=== PATIENT | male | born 1960 | race Caucasian/White ===

== ENCOUNTER 2021-12-15 13:34 | Outpatient (REF) | payer MEDICARE, MEDICAID, SELFPAY ==
--- NOTE | 2021-12-15 12:00 | TONG_PTH ---
PATIENT: Reynaldo Elder LOC: [facility] U#:[id number] AGE/SX: 61/M ROOM: RE12/15/[address]: Ignacia Mason : 1960 BED: DIS: 12/15/2021 SPEC #: [id number] RECD: 12/15/21 17:40 STATUS: GEENA REMarcie #: [id number] TAYLOR: 12/15/21 12:[address]: Ignacia Mason DEPT: Surgical Specimen RECD BY: Natasha Gallagher ENTERED: 12/15/21 17:41 SP TYPE: MAC SORENSON DR: Clinton Carreon Tissues: 1 - TONGUE BIOPSY Procedures: GROSS AND MICRO LEVEL 4 Comments: [id number]
== END 2021-12-15 13:35 | disposition home or self-care (01) ==
LOC: LBN 13:34
PROVIDERS: PCP Nurse Practitioner; Visit Provider Registered Nurse Maternal Newborn
DX: C02.1 Malignant neoplasm of border of tongue (principal); Z72.0 Tobacco use
CPT/HCPCS: 88305

== ENCOUNTER 2024-12-11 10:40 | Inpatient (IN) | payer OTHER, SELFPAY ==
--- NOTE | 2024-12-11 15:58 | HPE_ITS ---
Date of service: 12/11/24 Time of Service: 15:58 Assessment and Plan Assessment and plan (1) Lung cancer: Status: Chronic Assessment and plan: Lung mass, suspected lung cancer, declined further work-up or treatment. With dyspnea, poorly controlled at home. Severe SOB noted on admission. Nebs, morphine, O2 ordered. (2) Squamous cell carcinoma of tongue: Status: Acute Assessment and plan: 2021, s/p surgical excision. (3) Weakness: Status: Acute (4) Falls: Status: Acute Assessment and plan: He had a fall at home this morning while attempting to transfer. Wound to LUE from fall. (5) End of life care: Status: Acute (6) Anxiety about dying: Status: Acute (7) Agitation: Status: Acute (8) Alcohol use disorder: Status: Acute Assessment and plan: He is down to 1-2 beers per day. He went without any ETOH a few days last week. He is unlikely to withdraw, no CIWA ordered at this time. (9) Hospice care patient: Status: Acute Assessment and plan: Reynaldo is a 64 year old man who is on hospice for suspected lung cancer with history of tongue cancer (2021), s/p partial glossectomy and left neck dissection. When the lung mass was discovered, he decided not to pursue treatment and was admitted to hospice in October 2024. His son, Christofer has been his caregiver at home. He has not been doing well at home despite maximal attempts to keep him comfortable in his home. He is on fentanyl patch 100 mcg/hr and has required 190 mg of morphine oral concentrate as well as haldol and lorazepam PRN. His son and hospice team has not been able to manage his symptoms of anxiety, dyspnea and pain at home. He has severe dyspnea with audible wheezing noted on admission. He is admitted to hospice symptom management for EOL care with IV drip and PRN IV medications. History of Present Illness Narrative: Reynaldo is a 64 year old man who is on hospice for suspected lung cancer with history of tongue cancer (2021), s/p partial glossectomy and left neck dissection. When the lung mass was discovered, he decided not to pursue treatment and was admitted to hospice in October 2024. His son, Christofer has been his caregiver at home. He has recently been declining more significantly. Christofer reports that he was not eating last week and he thought he was going to but then he seemed to be doing a little better. He reports that over the last few days, he has been eating and drinking very little, he has been eating approximately 1-2 crackers per day. His pain, dyspnea and anxiety [facility] the [facility] and for Christofer to call the doctor. He is on fentanyl patch 100 mcg/hr and has also required 190 mg of morphine oral concentrate for pain and dyspnea. He has also had lorazepam and haldol PRN. A 14 fr coude catheter was inserted on 12/04. He is very weak and had a fall this morning while attempting to transfer. He has been agitated and restless. He has a significant ETOH history but he is down to 1-2 beers per day. He had a few days last week where he did not drink any alcohol at all. He is not likely to have withdrawal symptoms at this point. Upon admission for hospice symptom management, he is noted to have severe dyspnea, unable to speak. He was given nebulizer treatment on the way to the hospital with ambulance crew. He was given another nebulizer upon arrival. Discussed plan to start IV/SC drip for symptom management and he agrees. He is admitted for hospice symptom management for anxiety, dyspnea and pain. His life expectancy is limited and he may on this admission. Review of Systems Narrative: Difficult to obtain due to severe SOB with difficulty talking. [facility] All Active Problems (Updated 12/11/24 @ 16:25 by Diana Diaz NP) Alcohol use disorder (Acute) Agitation (Acute) Anxiety about dying (Acute) End of life care (Acute) Hospice care patient (Acute) Falls (Acute) Weakness (Acute) Lung cancer (Chronic) Squamous cell carcinoma of tongue (Acute) Tongue lesion (Acute) Medical History Tongue cancer Ankle fracture Broken wrist Broken thumb Depression Broken leg Anxiety Surgical History History of hip surgery History of hernia surgery Family History Mother Stroke Father Myocardial infarction Stroke Sister Arthritis Grandfather Personal history of malignant neoplasm Grandmother No problems noted. Social History Smoking/Tobacco Use Status: Former Tobacco Use tobacco type: cigarettes Quit Date: 03/30/22 Smoking risk assessment performed?: Yes Alcohol Intake: current Alcohol Intake frequency: 0-2 drinks per day Alcohol type: beer Details: Patient drinks a 12 pack a day. Drug use: Daily Substance use type: marijuana and other Meds Allergies and Home Medications Allergies Allergy/AdvReac Type Severity Reaction Status Date / Time No Known Allergies Allergy Unverified 10/03/24 13:23 Home Medications ?Medication ?Instructions ?Recorded ?Confirmed ?Type budesonide 160 mcg-glycopyr 9 2 inh inhalation QAM AND QPM #10.7 10/18/24 Rx mcg-formot 4.8 mcg/actuation HFA grams inhaler (Breztri Aerosphere) folic acid 1 mg tablet 1 mg PO DAILY #90 tabs 10/18 Rx thiamine HCl (vitamin B1) 100 mg 100 mg PO DAILY #90 c aps 10/18/24 Rx capsule ibuprofen 200 mg tablet 600 mg (3 x 200 mg) PO DAILY PRN 11/01/24 Rx cancer related pain #60 tabs prednisone 10 mg tablet 10 mg PO DAILY #14 tabs 0502/28 Rx polyethylene glycol 3350 17 17 g PO BID PRN constipati on #238 11/15/24 Rx gram/dose oral powder (Miralax) grams ipratropium 0.5 mg-albuterol 3 mg 3 ml inhalation Q6H PRN wheezing 11/26/24 Rx (2.5 mg base)/3 mL nebulization #90 mL soln albuterol sulfate 90 mcg/actuation 2 puff inhalation D AILY PRN 11/27/24 Rx aerosol inhaler shortness of breath or wheez ing #8.5 grams cephalexin 500 mg capsule 500 mg PO Q8H #21 caps 11/27 Rx lorazepam 1 mg tablet 1 mg PO Q4H PRN anxiety, IZQUIERDO or 11/28/24 Rx nausea #42 tabs prochlorperazine maleate 10 mg 10 mg PO Q6H PRN nausea and 11/29/24 Rx tablet (Compazine) vomiting #30 tabs fentanyl 100 mcg/hr transdermal 1 patch transdermal Q7 2H pain #5 ea 12/06/24 Rx patch morphine concentrate 100 mg/5 mL 5 - 20 mg (0.25 - 1 m L) PO Q1-4H 12/06/24 Rx (20 mg/mL) oral solution PRN moderate to severe pain or shortness of breath #60 mL Exam Narrative Exam Narrative: General: pleasant, chronically ill appearing, middle-aged man sitting up in the hospital bed with severe SOB and audible wheezing. He cannot speak due to dyspnea. HEENT: atraumatic, EOMI, mm dry. neck: supple Cardiovascular: heart sounds tachycardic. Respiratory: as above, severely increased WOB, unable to speak, +audible wheezing. Lungs sound wheezy/rhonchorous throughout. Wearing O2 via nc. No coughing noted during visit. GI: +BS, abd soft/flat, nondistended, nontender on palpation. Ext: trace pitting edema to BLEs. Moves all 4 extremities freely. Dressings to LUE. Time Spent Time spent with Patient: 55-74 minutes Time was spent: preparing to see the patient(eg.review tests), obtaining and/or reviewing separately otained hiistory, ordering medications,tests, procedures, referring, communicating with other health neonatal intensive care nurse, counseling the patient and care coordination
[2024-12-11] MEDS: Albuterol/Ipratropium 3 ML UPD VIAL IH (16:39)
[2024-12-11] MEDS: Albuterol 2.5 MG/3 ML INH SOLN VIAL UPD (17:59)
[2024-12-11] MEDS: MORPHine Oral Solution 10 MG/5 ML CUP PO (18:18)
[2024-12-11] MEDS: Patch Removal 1 EACH TD (18:19)
--- NOTE | 2024-12-11 20:01 | W.PC.ACHO ---
Registration Status: ADM IN Primary Language: Preferred Language: Medical / Surgical History (Last Reviewed 12/11/24 @ 16:18 by Diana Diaz NP) Tongue cancer Ankle fracture Broken wrist Broken thumb Depression Broken leg Anxiety (Last Reviewed 12/11/24 @ 16:18 by Diana Diaz NP) History of hip surgery History of hernia surgery Most Recent Vital Signs Pulse Rhythm Regular 12/11/24 17:15 Respiratory Effort Labored, Accessory Muscle Use, Incrsd Work of Breathing 12/11/24 17:15 Respiratory Depth Shallow 12/11/24 17:15 Respiratory Pattern Apnea 12/11/24 17:15 Comment no VS per hospice provider. 12/11/24 17:15 Allergies No Known Allergies Allergy (Unverified 10/03/24 13:23) Active Medications Generic Name Dose Route Start Last Admin Trade Name Freq PRN Reason Stop Dose Admin Albuterol Sulfate 2.5 mg 12/11/24 16:46 12/11/24 17:59 Albuterol 2.5 Mg/3 Ml Inh Soln Vial UPD 2.5 mg Q1H PRN PRN Administration Hydromorphone HCl 500 mg/ 250 mls @ 1 mls/hr 12/11/24 16:00 12/11/24 18:57 Sodium Chloride IV_INF 2.5 mg/hr INFUSION KASHMIR 1.25 mls/hr Protocol Titration 2 MG/HR Morphine Sulfate 0 mg 12/11/24 10:51 12/11/24 18:18 Morphine Oral Solution 10 Mg/5 Ml Cup PO 10 mg Q4H PRN Administration dyspnea Scopolamine HBr 1 mg 12/11/24 12:00 12/11/24 18:30 Scopolamine 1 Mg/3 Days Patch TD Not Given Q72H KASHMIR IV IV Catheter Type [Right Wrist] Peripheral IV IV Catheter Gauge [Right Wrist 20 ] Diet Orders Category Date Time Status Regular/Normal [DIET] Nutrition 12/11/24 Dinner Active Intake and Output - 24 Hour Total 12/11/24 thru 12/11/24 18:57 Intake Total 552.433 Balance 552.433 Weight 66.814 kg Intake: IV 2.433 Oral 550 Other: Urine Color Yellow Urine Appearance Clear Problems (Last Reviewed 12/11/24 @ 16:18 by Diana Diaz NP) Alcohol use disorder (Acute) Agitation (Acute) Anxiety about dying (Acute) End of life care (Acute) Hospice care patient (Acute) Falls (Acute) Weakness (Acute) Lung cancer (Chronic) Squamous cell carcinoma of tongue (Acute) v v v v v v v v v Sending and/or Receiving Nurses: Please use comment section below to note any information pertinent to the patient hand-off not included above. Information / Comments: Pt arrived to unit in a lot of discomfort and air hunger noted, RT notified. Report received from: Diana Ricks Hospice provider, EMS personal.
[2024-12-11] MEDS: LORazepam 20 MG/10 ML VIAL IV/SC (23:21)
[2024-12-11] MEDS: MORPHine 4 MG/ML SYR IV/SC (23:23)
[2024-12-12] MEDS: MORPHine 4 MG/ML SYR IV/SC ×2 (10:11→22:10)
[2024-12-12 11:20] VITALS: O2SAT 91
[2024-12-12 11:24] VITALS: PULSE 51; RESP 24; O2SAT 91
[2024-12-12] MEDS: Albuterol 2.5 MG/3 ML INH SOLN VIAL UPD (11:24)
--- NOTE | 2024-12-12 11:40 | PDOC.CMPRO ---
Date of service: 12/12/24 Time of Service: 11:40 Care Management Progress Note Progress Note Text Progress Note Text: Reynaldo was admitted yesterday for hospice symptom management. Reynaldo has lung cancer as well as a squamous cell carcinoma of the tongue. He has declined further treatment. He was admitted due to severe shortness of breath at home, along with anxiety. Reynaldo is cared for by his son, Christofer. Reynaldo was lying in bed when CM met with him today. He did not respond to CM. Christofer was present. He was very pleasant. He stated that he seemed to have everything that he needs. He feels that his dad is being well taken care of, and the staff is treating him nicely as well. Discharge Potential Discharge Needs: Other (hospice follow up) Anticipated Barriers to Discharge: None Identified Patient/Family Education Needs: Review discharge instructions, discuss Ask Me Three Transportation: EMS Plan: Reynaldo is on comfort measures. It appears that he will remain at [facility] through the end of his life. CM will continue to follow and offer comfort to the family. Social Determinants of Health Screening Will the Patient Participate in the Screening?: Unable to obtain
[2024-12-12] MEDS: Scopolamine 1 MG/3 DAYS PATCH TD (11:46)
[2024-12-12] MEDS: LORazepam 1 MG TAB PO (12:56)
[2024-12-12] MEDS: MORPHine Oral Solution 10 MG/5 ML CUP PO ×2 (14:40→23:55)
--- NOTE | 2024-12-12 14:42 | W.PM.PROGNOT ---
Date of Service Date of service: 12/12/24 Time of Service: 14:00 Assessment and Plan Assessment and plan (1) Lung cancer: Status: Chronic Assessment and plan: Lung mass, suspected lung cancer, declined further work-up or treatment. With dyspnea, poorly controlled at home. Severe SOB noted on admission with some improvement noted today, however, he does not appear comfortable yet. He remains restless, he does not appear to be resting comfortably yet. Nebs, morphine, O2 ordered. Morphine order changed to q1h PRN for dyspnea. (2) Squamous cell carcinoma of tongue: Status: Acute Assessment and plan: 2021, s/p surgical excision. (3) Weakness: Status: Acute Assessment and plan: Requires 2 assist chair to bed. (4) Falls: Status: Acute Assessment and plan: He had a fall at home yesterday morning while attempting to transfer. Wound to LUE from fall. (5) End of life care: Status: Acute (6) Anxiety about dying: Status: Acute Assessment and plan: He appears restless, his son feels he is anxious. He has PRN IV lorazepam ordered. Scheduled lorazepam 1 mg q4h added today. (7) Agitation: Status: Acute (8) Alcohol use disorder: Status: Acute Assessment and plan: He is down to 1-2 beers per day. He went without any ETOH a few days last week. He is unlikely to withdraw, no CIWA ordered at this time. Lorazepam ordered for PRN in addition to scheduled doses. (9) Cancer-related pain: Status: Acute Assessment and plan: His pain is under better control with the hydromorphone pump, currently at 4 mg/hr with bolus of 2 mg q15 min PRN. Titrate as needed. (10) Hospice care patient: Status: Acute Assessment and plan: Reynaldo is a 64 year old man who is on hospice for suspected lung cancer with history of tongue cancer (2021), s/p partial glossectomy and left neck dissection. When the lung mass was discovered, he decided not to pursue treatment and was admitted to hospice in October 2024. His son, Christofer has been his caregiver at home. He was not doing well at home despite maximal attempts to keep him comfortable in his home. His son and hospice team were unable to manage his symptoms of anxiety, dyspnea and pain at home. He had severe dyspnea with audible wheezing noted on admission. There is some improvement with breathing, anxiety and pain but he does not appear comfortable yet. Orders adjusted as above. He is taking in very little. He is only taking sips of water and a milkshake. He was only taking bites at home for at least a week prior to coming into the hospital. He is admitted to hospice symptom management for EOL care with IV drip and PRN IV medications. He remains on hospice symptom management. Subjective Subjective Interval history since last seen: Reynaldo was seen in his hospital room with his son, Christofer present. Reynaldo was sitting up in the chair with his legs dependent. He had his eyes closed but he did not appear comfortable or relaxed. His breathing does not appear as labored as yesterday but he still has increased WOB. Nursing is giving him liquid morphine PRN with relief, nursing is requesting more frequent dosing for the morphine as it appears to be helping his dyspnea. He is wearing O2 via nc at 3 lpm. He is also getting PRN nebs. He is taking occasional sips of water and a shake. He has only taken bites for about a week prior to coming into the hospital. He has a hydromorphone drip running at 4 mg/hr with 2 mg q15 minute PRN bolus. His pain appears overall under control but he occasionally reports discomfort to his son. He does not have lower extremity edema but he has purple discoloration to BLEs while sitting up in the chair. His lower extremities are cool to touch. He is leaning forward frequently. He opened his eyes briefly during the visit but he did not wake up enough to engage in the visit. Exam Narrative Exam Narrative: General: pleasant, chronically ill appearing, middle-aged man sitting up in the chair with legs dependent. He kept his eyes closed for most of the visit but opened them briefly and made eye contact. HEENT: atraumatic, makes eye contact when he opens his eyes, mm slightly dry. neck: supple Cardiovascular: heart sounds regular. Respiratory: as above, he continues to have increased WOB, although some improvement noted as compared to yesterday. Lungs sound diminished throughout, wheezing improved from yesterday. Wearing O2 via nc. No coughing noted during visit. GI: +BS, abd soft/flat, nondistended, nontender on palpation. Ext: no edema to BLEs, skin wrinkled on legs. +Purple discoloration noted to BLEs, BLEs cool to touch. Moves all 4 extremities freely. Dressings to LUE and toe on R. Objective Last Vital Signs Pulse 51 L 12/12/24 11:24 Resp 24 12/12/24 11:24 Pulse Ox 91 L 12/12/24 11:24 PAWSS Have you Been Recently Intoxicated or Drunk Within the Last 30 days?: Unable to Obtain Have you Ever Experienced Previous Episodes of Alcohol Withdrawal?: Unable to Obtain Have you ever Experienced Withdrawal Seizures?: Unable to Obtain Have you ever Experienced Delirium Tremens(DT)s?: Unable to Obtain Have you ever undergone Alcohol Rehabilitation Treatment (i.e, inpt ot outpatient treatment programs)?: Unable to Obtain Have you ever Experienced Blackouts?: Unable to Obtain Have you ever Combined Alcohol with other Downers within the last 90 days?: Unable to Obtain Have you ever Combined Alcohol with any other Substance of Abuse during the last 90 days?: Unable to Obtain Positive Blood Alcohol level on Presentation? [PCS.BAL]: Unable to Obtain Evidence of Increased Autonomic Activity (i.e. HR>120, tremor, sweating, agitation, nausea)?: Unable to Obtain Time Spent with Patient Time Spent with Patient: >50 minutes Time was spent: preparing to see the patient(eg.review tests), ordering medications,tests, procedures, referring, communicating with other health hiv/aids care nurse, counseling the patient and care coordination
--- NOTE | 2024-12-12 14:49 | CHAPLAIN ---
I met Reynaldo last evening when he was first admitted. He was fidgety and restless until his nurse, LM Nicholas, was able to get his pain meds delivered by IV. He spoke a bit. It was difficult to understand what he was saying, except for one time when he said, I want to go home clearly. We suggested he plan to stay for the night. Reynaldo is a hospice patient from [place] who was a direct admit yesterday for symptom management. His son Christofer is with him to day. Christofer said Reynaldo has been restless for two weeks and it's been difficult to keep him in bed and comfortable. Christofer said he had hoped to keep Reynaldo at home but appreciates that he can visit him here and get rest at night. Christofer said Reynaldo's sister may be in to visit later today.
[2024-12-12] MEDS: LORazepam 20 MG/10 ML VIAL IVP ×3 (15:37→23:33)
[2024-12-13] MEDS: MORPHine 4 MG/ML SYR IV/SC ×4 (02:30→22:15)
[2024-12-13] MEDS: Glycopyrrolate 0.2 MG/1 ML VIAL IVP ×3 (03:17→13:39)
[2024-12-13] MEDS: LORazepam 20 MG/10 ML VIAL IVP ×3 (04:54→18:35)
[2024-12-13] MEDS: LORazepam 20 MG/10 ML VIAL IV/SC ×3 (06:06→22:15)
--- NOTE | 2024-12-13 14:31 | CHAPLAIN ---
I continue to check in on Reynaldo multiple times a day. Reynaldo's son Christofer and Reynaldo's sister are here today with him. They said that Reynaldo seems more calm today, less restless than yesterday. Reynaldo is here for hospice symptom management.
--- NOTE | 2024-12-13 14:41 | W.PM.PROGNOT ---
Date of Service Date of service: 12/13/24 Time of Service: 14:43 Assessment and Plan Assessment and plan (1) Cancer-related pain: Status: Acute Assessment and plan: is on hydromorphone drip at 6 mg/hr basal and 3 mg bolus, still uncomfortable will continue pain meds while on palliative sedation titrate up hydromorphone if needed (2) Agitation: Status: Acute Assessment and plan: severe, terminal has had haldol without much improvement combination of pain, dyspnea, anxiety, aspiration pneumonia, possible hepatic encephalopathy (3) Anxiety about dying: Status: Acute Assessment and plan: present when first admitted to hospice but has been improving over last few weeks family present loving and comforting (4) End of life care: Status: Acute Assessment and plan: hospital client partner present getting oral care regularly has cool cloths for forehead, feels very hot to touch added iv tylenol for comfort about to start palliative sedation with propofol (5) Hospice care patient: Status: Acute Assessment and plan: changing from respite to symptom managment status, given his current intense level of management (6) Weakness: Status: Acute Assessment and plan: bed bound (7) Lung cancer: Status: Chronic Assessment and plan: mass never biopsied, highly suspicious for lung cancer based on medical history and imaging (8) Squamous cell carcinoma of tongue: Status: Acute Assessment and plan: s/p glossectomy and chemo and radiation his experience treating this cancer made him reluctant to treat any other (9) Delirium: Status: Acute Assessment and plan: ternimal delirium reassured family that this is part of most people's dying process, but we need Reynaldo to be more comfortable than he is. (10) Fever: Status: Acute Assessment and plan: likely due to an aspiration pneumonia, his glossecomy makes it harder to swallow, high risk for asp pneumo Subjective Subjective Patient reports: still having pain, shortness of breath and fever; denies tolerating liquids well Interval history since last seen: Reynaldo is still suffering. His nurse has been appropriately increasing both his basal and bolus doses of hydromorphone. He is getting lorazepam hourly He is also getting liquid morphine for air hunger. He is febrile and restless. He is far from comfortable. Given this, we are changing him over to HOSPICE SYMPTOM MANAGeMENT. I spoke to Shannen Johnson, hospice nurse leader as well as Antonia Dominique MD, alternative hospice medical lab tech instructor, about starting palliative sedation for Reynaldo. We agreed that with his current symptoms , he qualfies. His son Christofer who is Reynaldo's DPOA and Reynaldo's sister Pauly were both present during the discussion. Christofer and I reviewed the palliative sedation permission form together and we both signed it. I reviewed the protocol with hospital pharmacist Chano and with Reynaldo's primary nurse Ava. Order was entered. Exam Narrative Exam Narrative: Sitting up in bed, eyes closed, restless, struggling to breathe, uncomfortable, grimacing on and off, anxious appearing Eyes anicteric, open them briefly Heent mm are dry but not parched, no oral lesions noted, is s/p glossectomy neck no lad or jvd lungs rhonchi throughout , tachypneic, using accessory muscles, crackles at bases, right > left abd soft NT, ND no masses noted gu has chavez in place, urine is memo and concentrated. ext + clubbing of all fingers, feet are cyanotic, but still warm given his terminal fever skin no caput's medusa, no spider hemangioma's despite many years of heavy etoh psych appears anxious, restless, not verbalizing, cannot tell if hallucinating cv tachycardic, irregular Objective Last Vital Signs Pulse 51 L 12/12/24 11:24 Resp 24 12/12/24 11:24 Pulse Ox 91 L 12/12/24 11:24 PAWSS Have you Been Recently Intoxicated or Drunk Within the Last 30 days?: Unable to Obtain Have you Ever Experienced Previous Episodes of Alcohol Withdrawal?: Unable to Obtain Have you ever Experienced Withdrawal Seizures?: Unable to Obtain Have you ever Experienced Delirium Tremens(DT)s?: Unable to Obtain Have you ever undergone Alcohol Rehabilitation Treatment (i.e, inpt ot outpatient treatment programs)?: Unable to Obtain Have you ever Experienced Blackouts?: Unable to Obtain Have you ever Combined Alcohol with other Downers within the last 90 days?: Unable to Obtain Have you ever Combined Alcohol with any other Substance of Abuse during the last 90 days?: Unable to Obtain Positive Blood Alcohol level on Presentation? [PCS.BAL]: Unable to Obtain Evidence of Increased Autonomic Activity (i.e. HR>120, tremor, sweating, agitation, nausea)?: Unable to Obtain Time Spent with Patient Time Spent with Patient: 35-49 minutes Time was spent: preparing to see the patient(eg.review tests), ordering medications,tests, procedures, referring, communicating with other health care management assistant, counseling the patient and care coordination
[2024-12-13] MEDS: ACETAMINOPHEN 1,000 MG/100 ML BAG 400 MG IVPB (14:46)
[2024-12-13] MEDS: PROPOFOL 1,000 MG/100 ML BTL 1 MG IV_INF (15:12)
--- NOTE | 2024-12-13 18:26 | PDOC.CMPRO ---
Date of service: 12/13/24 Time of Service: 18:26 Care Management Progress Note Progress Note Text Progress Note Text: Reynaldo was lying in bed, with the head of the bed elevated when CM met with him; he was not responsive, although he did not appear comfortable at that time. His sister and son were both visiting, listening to his favorite music and soothing him as needed. They stated that his RN was recently in and provided additional medication to help with his restlessness, and they are waiting for it to be more effective. They were pleasant and caring towards Reynaldo. CM provided support and empathy; CM will continue to check in with Reynaldo and his family, providing support during this difficult time. Discharge Plan: Reynaldo is at [facility] for hospice symptom management, and will remain here for end of life care. 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 CM will continue to follow and offer comfort to the family. Social Determinants of Health Screening Will the Patient Participate in the Screening?: Unable to obtain
[2024-12-14] MEDS: LORazepam 20 MG/10 ML VIAL IVP (00:13)
--- NOTE | 2024-12-14 10:42 | DSE_ITS ---
Date of service: 12/14/24 Time of Service: 01:57 DS: Diagnosis Discharge Diagnosis (1) Cancer-related pain: Status: Acute (2) Agitation: Status: Acute (3) Anxiety about dying: Status: Acute (4) End of life care: Status: Acute (5) Hospice care patient: Status: Acute (6) Weakness: Status: Acute (7) Lung cancer: Status: Chronic (8) Squamous cell carcinoma of tongue: Status: Acute (9) Delirium: Status: Acute (10) Fever: Status: Acute Discharge Plan Disposition Patient Disposition: Discharge Details Reason For Visit: Lung Mass, Hospice Symptom Management Admit Date/Time: 12/11/24 10:40 Admit Provider: Jacki Alvarado Attending Provider: Jacki Alvarado Primary Care Provider: Jose Martin Carreon Hospital Course Hospital Course: DATE OF ADMISSION: 12/11/2024 DATE OF : 12/14/2024 at 01:57 DISCHARGE DISPOSITION: DISCHARGE DIAGNOSES: * Suspected lung cancer ? status: chronic * Squamous cell carcinoma of the tongue, s/p partial glossectomy and left neck dissection (2021) ? status: history * Generalized weakness ? status: acute * Fall with left upper extremity injury ? status: acute * End-of-life care/hospice management ? status: acute * Anxiety related to dying ? status: acute * Agitation ? status: acute * Alcohol use disorder, not currently withdrawing ? status: chronic * Hospice care ? status: acute HOSPITAL COURSE: Mr. Reynaldo Elder, a 64-year-old male with a history of squamous cell carcinoma of the tongue (2021) and suspected lung cancer, was admitted from home hospice care for inpatient hospice symptom management. He had declined work-up and treatment for his lung mass and enrolled in hospice in October 2024. His primary caregiver was his son, Christofer. In the days leading up to admission, the patient experienced increasing weakness, poor oral intake, severe dyspnea, and poorly controlled pain and anxiety despite maximal efforts at home. He had required high doses of fentanyl (100 mcg/hr patch), morphine oral concentrate (190 mg/day), Haldol, and lorazepam PRN. His condition further deteriorated with a fall on the morning of admission, resulting in a left upper extremity wound. On admission, he presented with severe shortness of breath, audible wheezing, and agitation. Nebulizer treatments were provided en route and again on arrival. Given his terminal condition, a shared decision was made to initiate IV/subcutaneous palliative sedation. He was made comfortable with continuous IV medication infusions for symptom relief. He remained minimally responsive and peacefully on 12/14/2024 at 01:57 with family at his bedside. PROCEDURES: * 14 Fr Coude catheter placement on 12/04/2024 * Initiation of palliative sedation protocol on 12/13/2024 FAMILY COMMUNICATION: Extensive [id number] discussions were held with the patient and his son. All parties agreed to comfort-directed care. The patient was informed and supportive of the decision to focus on symptom relief. DISCHARGE DISPOSITION: on 12/14/2024 at 01:57 AM during inpatient hospice care. Comfort measures were in place. No resuscitative efforts were made in accordance with his wishes. Discharge Data Discharge Date/Time-TO BE ENTERED AT DEPARTURE: 12/14/24 08:02 Exam Narrative Exam Narrative: No pulse, no respirations DS: Data Vitals/I&O Vitals and I&O: Vital Signs Pulse 51 L 12/12/24 11:24 Pulse Rhythm Regular 12/11/24 17:15 Respiratory Rate 24 12/12/24 11:24 Respiratory Effort Labored, Accessory Muscle Use, Incrsd Work of Breathing 12/11/24 17:15 Respiratory Depth Shallow 12/11/24 17:15 Respiratory Pattern Apnea 12/11/24 17:15 Pulse Oximetry 91 L 12/12/24 11:24 Oxygen Delivery Method Room Air 12/14/24 00:31 Oxygen Flow Rate 0 12/14/24 00:31 Comment no VS per [facility] hospice provider. 12/11/24 17:15 Intake & Output 12/13/24 12/13/24 12/14/24 11:59 23:59 11:59 Intake Total 38.879 / 209.966 171.087 / 209.966 35.918 / 35.918 Output Total 100 / 100 Balance -61.121 / 109.966 171.087 / 109.966 35.918 / 35.918 Intake: IV 38.879 / 209.966 171.087 / 209.966 35.918 / 35.918 Output: Urine 100 / 100 Other: Urine Color Dark Devika Urine Appearance Clear Cloudy Cloudy PFSH All Active Problems (Updated 12/13/24 @ 14:56 by Jacki Alvarado MD) Fever (Acute) Delirium (Acute) Cancer-related pain (Acute) Alcohol use disorder (Acute) Agitation (Acute) Anxiety about dying (Acute) End of life care (Acute) Hospice care patient (Acute) Falls (Acute) Weakness (Acute) Lung cancer (Chronic) Squamous cell carcinoma of tongue (Acute) Tongue lesion (Acute) Medical History Tongue cancer Ankle fracture Broken wrist Broken thumb Depression Broken leg Anxiety Surgical History History of hip surgery History of hernia surgery Family History Mother Stroke Father Myocardial infarction Stroke Sister Arthritis Grandfather Personal history of malignant neoplasm Grandmother No problems noted. Social History Smoking/Tobacco Use Status: Former Tobacco Use tobacco type: cigarettes Quit Date: 03/30/22 Smoking risk assessment performed?: Yes Alcohol Intake: current Alcohol Intake frequency: 0-2 drinks per day Alcohol type: beer Details: Patient drinks a 12 pack a day. Drug use: Daily Substance use type: marijuana and other Housing: house Time Spent with Patient Time Spent with Patient: <45 minutes Time was spent: referring, communicating with other health urgent care physician and care coordination
--- NOTE | 2024-12-14 10:59 | EXPE_ITS ---
Date of service: 12/14/24 Time of Service: 01:57 Discharge Plan Disposition Patient Disposition: Discharge Details Reason For Visit: Lung Mass, Hospice Symptom Management Admit Date/Time: 12/11/24 10:40 Admit Provider: Jacki Alvarado Attending Provider: Jacki Alvarado Primary Care Provider: Jose Martin Carreon Hospital Course Hospital Course: DATE OF ADMISSION: 12/11/2024 DATE OF : 12/14/2024 at 01:57 DISCHARGE DISPOSITION: DISCHARGE DIAGNOSES: * Suspected lung cancer ? status: chronic * Squamous cell carcinoma of the tongue, s/p partial glossectomy and left neck dissection (2021) ? status: history * Generalized weakness ? status: acute * Fall with left upper extremity injury ? status: acute * End-of-life care/hospice management ? status: acute * Anxiety related to dying ? status: acute * Agitation ? status: acute * Alcohol use disorder, not currently withdrawing ? status: chronic * Hospice care ? status: acute HOSPITAL COURSE: Mr. Reynaldo Elder, a 64-year-old male with a history of squamous cell carcinoma of the tongue (2021) and suspected lung cancer, was admitted from home hospice care for inpatient hospice symptom management. He had declined work-up and treatment for his lung mass and enrolled in hospice in October 2024. His primary caregiver was his son, Christofer. In the days leading up to admission, the patient experienced increasing weakness, poor oral intake, severe dyspnea, and poorly controlled pain and anxiety despite maximal efforts at home. He had required high doses of fentanyl (100 mcg/hr patch), morphine oral concentrate (190 mg/day), Haldol, and lorazepam PRN. His condition further deteriorated with a fall on the morning of admission, resulting in a left upper extremity wound. On admission, he presented with severe shortness of breath, audible wheezing, and agitation. Nebulizer treatments were provided en route and again on arrival. Given his terminal condition, a shared decision was made to initiate IV/subcutaneous palliative sedation. He was made comfortable with continuous IV medication infusions for symptom relief. He remained minimally responsive and peacefully on 12/14/2024 at 01:57 with family at his bedside. PROCEDURES: * 14 Fr Coude catheter placement on 12/04/2024 * Initiation of palliative sedation protocol on 12/13/2024 FAMILY COMMUNICATION: Extensive [id number] discussions were held with the patient and his son. All parties agreed to comfort-directed care. The patient was informed and supportive of the decision to focus on symptom relief. DISCHARGE DISPOSITION: on 12/14/2024 at 01:57 AM during inpatient hospice care. Comfort measures were in place. No resuscitative efforts were made in accordance with his wishes. Discharge Data Discharge Date/Time-TO BE ENTERED AT DEPARTURE: 12/14/24 08:02 Discharge Sum: Diag Contributing Factors (1) Cancer-related pain: (2) Agitation: (3) Anxiety about dying: (4) End of life care: (5) Hospice care patient: (6) Weakness: (7) Lung cancer: (8) Squamous cell carcinoma of tongue: (9) Delirium: (10) Fever: Discharge Sum: Summary Additional Data Confirmation of as documented by pronouncing clinician: no pulse, no respirations, no heart sounds and pupils fixed and dilated Family: at bedside Attending/PCP notified?: Yes Attending Physician: Jacki Alvarado
== END 2024-12-14 08:02 | disposition expired | DRG 948 ==
PROVIDERS: Admitting Provider Family Medicine; PCP Nurse Practitioner; Visit Provider Family Medicine
DX: G89.3 Neoplasm related pain (acute) (chronic) (principal); C34.90 Malignant neoplasm of unspecified part of unspecified bronchus or lung; C02.9 Malignant neoplasm of tongue, unspecified; Z51.5 Encounter for palliative care; R53.1 Weakness; R29.6 Repeated falls; R45.89 Other symptoms and signs involving emotional state; R45.1 Restlessness and agitation; F10.90 Alcohol use, unspecified, uncomplicated; F41.0 Panic disorder [episodic paroxysmal anxiety]; R50.9 Fever, unspecified; R06.02 Shortness of breath; W19.XXXA Unspecified fall, initial encounter; Z87.891 Personal history of nicotine dependence; F12.90 Cannabis use, unspecified, uncomplicated
CPT/HCPCS: 00123; 94640; 94760; 99223; 99233; J0131; J1171; J1596; J2060; J2270; J2704; J3490; J7613; J7620